=== PATIENT | male | born 1955 | race Caucasian/White ===

== ENCOUNTER → 2016-10-04 | Outpatient (CLI) | payer MEDICARE, MEDICAID ==
[~2016-10-04] MED LIST: ALBUTEROL200 PUFFS/ IH; AMBIEN 10MG TAB10 MG PO; ASPIRIN 325MG325 MG PO; ASPIRIN 81MG TA81 MG PO; ASPIRIN EC325 MG PO; ASPIRIN325 M1 PO; ASTEPRO205.5 MCG/ NS; ATIVAN0.5 MG PO; AUGMENTIN 875 M1 TAB PO; AVAPRO 150MG T150 MG PO; AVAPRO300 M1 PO; AVAPRO300 MG PO; AVAPRO75 MG PO; AZITHROMYCIN250 M1 PO; AZITHROMYCIN250 MG PO; BACTRIM DS 8001 TA1 PO; BENADRYL 50MG C50 MG PO; BISOPROLOL 5MG T5 MG PO; BREO ELLIPTA1 POW IH; BUDESONIDE0.25 MG/2 IH; BUPROPION HCL150 M2 PO; BUPROPION HYDR150 M1 PO; BUSPAR 10MG TAB10 MG PO; CARVEDILOL3.125 M1 PO; CEFTIN500 MG PO; CEFUROXIME AXE500 MG PO; CHILDREN'S AL1 MG/ML PO; CHILDREN'S BE12.5 MG PO; CHLORTHALIDONE25 MG PO; CIPROFLOXACIN500 MG PO; CLARITIN 10MG T10 MG PO; CLEOCIN GENERI150 MG PO; CLINDAMYCIN HC300 MG PO; CLINDAMYCIN300 MG PO; CLONAZEPAM0.5 M1 PO; CLONAZEPAM0.5 MG PO; CLONIDINE 0.2M0.2 MG PO; COREG 3.125M3.125 MG PO; CYCLOBENZAPRINE10 M2 PO; DIGOXIN0.25 MG PO; DIPHENHYDRAMINE25 M1 PO; DOCUSATE SODIU250 M1 PO; DOXYCYCLINE HY100 MG PO; DOXYCYCLINE100 M1 PO; DRAMAMINE50 MG PO; Docusate Sodiu100 MG PO; FERATAB300 MG PO; FLEXERIL10 M1 PO; FLEXERIL10 MG PO; FLONASE 50 MCG16 GM; FLUTICASONE 50M16 GM; GAS RELIEF80 MG PO; GAS-X80 MG PO; HYDROCHLOROTHIA25 M1 PO; IMDUR 30MG. TAB30 MG PO; IMDUR 60MG. TAB60 MG PO; IRBESARTAN300 M1 PO; IRON325 M1 PO; LODINE400 MG PO; LORATADINE 10MG10 M1 PO; MAREPA1200 MG PO; MASON NATURAL1200 MG PO; MEDROL 4MG. DOSE4 MG PO; MELATONIN3 MG PO; METOLAZONE 2.52.5 MG PO; MIRALAX17 GM/PACK PO; MONODOX100 MG PO; NAPROSYN 500MG500 MG PO; NASONEX0.05 MG/AC NS; NATURE'S BLEND M3 MG PO; NEXIUM40 MG PO; NIACIN NO FLUSH1 CAP PO; NIACIN PO; NITROGLYCERIN0.4 MG SL; NITROLINGU0.4 MG/ACT SL; OMEGA 31000 MG PO; OXYCODONE CR10 MG PO; OXYCODONE HYDRO10 M2 PO; OXYCODONE/APAP1 TA5 PO; PANTOPRAZOLE SO40 M1 PO; PANTOPRAZOLE SO40 MG PO; PAROXETINE20 MG PO; PERCOGESIC1 TAB PO; PHENERGAN 25MG.25 M1 PO; PLAVIX75 MG PO; PRAVASTATIN 40M40 MG PO; PRILOSEC40 MG PO; PROAIR HFA0.09 MG/AC IH; PROMETHAZINE HC25 M1 PO; PROTONIX 40MG T40 MG PO; PULMICORT180 MCG/AC IH; Pepcid20 MG PO; RANITIDINE HCL150 MG PO; ROBAXIN-750750 MG PO; RYZOLT100 MG PO; SEROQUEL XR150 MG PO; SIMETHICONE80 MG PO; SOTALOL 80MG TA80 MG PO; SOTALOL HCL120 MG PO; SOTALOL80 MG PO; SYMBICORT1 AE1 IH; TAMSULOSIN HYD0.4 MG PO; TRAMADOL 50MG T50 MG PO; TRAZODONE100 MG PO; TRIAMCINOLON 0.15 GM EX; TRIAMCINOLON 0.80 G2 TP; TRIAMCINOLONE TP; ULTRACET 325 MG1 TAB PO; VALIUM10 MG OR; VICODIN 7.5/501 EACH PO; VITAMIN E 400400 IU PO; VOLTAREN75 MG PO; XANAX 0.5MG TA0.5 MG PO; XARELTO20 MG PO; ZEBETA 5 MG TABL5 MG PO; ZITHROMAX 250M250 MG PO; ZITHROMAX TRI-500 MG PO; ZITHROMAX Z PA250 MG PO; ZITHROMAX Z-PA250 M1 PO; ZYRTEC10 M3 PO; Zofran4 MG PO
[2016-10-04 07:14] LABS: LYMPH # 0.9 K/mm3 (0.7-4.5); LYMPH % 27.6 % (10-50)
[2016-10-04 07:18] LABS: HEMOGLOBIN 11.7 g/dL (14.1-18.0)
[2016-10-05 08:46] LABS: Iron 32 ug/dL (38-169); Iron Saturation 9 % (15-55); UIBC 334 ug/dL (111-343)
== END ==
LOC: LAB 06:58
PROVIDERS: Nurse Practitioner
DX: D50.9 Iron deficiency anemia, unspecified (principal)

== ENCOUNTER 2016-10-20 09:10 | Outpatient (CLI) | payer MEDICARE, MEDICAID ==
[~2016-10-20 09:10] MED LIST changes: +ADVAIR 10028 PUFF/IN IN
[2016-10-20 09:47] VITALS: BP 116/72
[2016-10-20 10:18] VITALS: BP 118/70
[2016-10-20 10:55] VITALS: BP 125/71
[2016-10-20] MEDS ORDERED: ZOLOFT25 MG PO (16:03)
[2016-10-20] MEDS ORDERED: PROAIR HFA0.09 MG/AC IH (16:06)
== END 2016-10-20 11:05 | disposition home or self-care (01) ==
LOC: COP 09:10
DX: D50.9 Iron deficiency anemia, unspecified (principal); D50.0 Iron deficiency anemia secondary to blood loss (chronic); T45.4X5A Adverse effect of iron and its compounds, initial encounter
CPT/HCPCS: J1756

== ENCOUNTER 2016-10-27 09:15 | Outpatient (CLI) | payer MEDICARE, MEDICAID ==
[~2016-10-27] VITALS: Ht 177.8 cm; Wt 92.3 kg
[~2016-10-27 09:15] MED LIST changes: +ZOLOFT25 MG PO
[2016-10-27 09:45] VITALS: BP 130/64
[2016-10-27] MEDS ORDERED: ADVAIR 10028 PUFF/IN IN (09:55)
[2016-10-27] MEDS ORDERED: ADVAIR 250/5028 PUFF IN (09:57)
[2016-10-27 10:15] VITALS: BP 111/62
== END 2016-10-27 10:30 | disposition home or self-care (01) ==
LOC: COP 09:15
DX: D50.9 Iron deficiency anemia, unspecified (principal); D50.0 Iron deficiency anemia secondary to blood loss (chronic); T45.4X5A Adverse effect of iron and its compounds, initial encounter
CPT/HCPCS: J1756

== ENCOUNTER → 2016-12-10 | Outpatient (CLI) | payer MEDICARE, MEDICAID ==
[~2016-12-10] MED LIST changes: +ADVAIR 250/5028 PUFF IN
[2016-12-10 10:45] LABS: URINE BILIRUBIN - DIPSTICK NEGATIVE (NEG); URINE BLOOD NEGATIVE (NEG)
[2016-12-10 11:36] LABS: BUN 13 mg/dL (7-18)
[2016-12-10 12:01] LABS: GFR (ESTIMATED) 68 ML/MIN (>60)
== END ==
LOC: LAB 10:11
PROVIDERS: Internal Medicine Adolescent Medicine
DX: R39.198 Other difficulties with micturition (principal)

== ENCOUNTER → 2017-04-28 | Outpatient (CLI) | payer MEDICARE, MEDICAID ==
[2017-04-28 10:25] LABS: HEMOGLOBIN 14.3 g/dL (14.1-18.0); LYMPH # 1.1 K/mm3 (0.7-4.5); LYMPH % 19.8 % (10-50)
[2017-04-28 11:59] LABS: BUN 17 mg/dL (7-18)
[2017-04-28 12:05] LABS: GFR (ESTIMATED) 68 ML/MIN (>60)
== END ==
LOC: LAB 07:00
PROVIDERS: Internal Medicine Adolescent Medicine
DX: I10 Essential (primary) hypertension (principal); E11.9 Type 2 diabetes mellitus without complications; D50.9 Iron deficiency anemia, unspecified

== ENCOUNTER → 2017-05-24 | Outpatient (CLI) | payer MEDICARE, MEDICAID ==
--- NOTE | 2017-05-26 10:14 | RADIOLOGY REPORT PS360 ---
DIG MAMM-DX LASHONDA W/CAD, US BREAST-LT COMPLETE W/AXILLA COMPARISON: None INDICATION: Palpable abnormality left breast ORDERING PHYSICIAN: Andrew Costello MD PATIENT AGE: 62 years TECHNIQUE: Standard images performed along with left breast ultrasound FINDINGS: No malignant appearing mass or malignant appearing microcalcification is evident. Left breast ultrasound: There is an oval area of isoechogenicity in the 9:00 region measuring 2 x 1.8 cm and 0.8 cm thick corresponding to the palpable abnormality probably related to lipoma. In addition, there is a slightly hyperechoic nodule at 1 cm at 2:00 also probably related to a lipoma. IMPRESSION: Benign findings, palpable left breast abnormality at 9:00 is felt to be related to a lipoma BI-RADS CATEGORY: 2_Benign RECOMMENDED FOLLOWUP: As clinically warranted (A letter has been sent to the patient regarding results of the study.)
== END ==
LOC: RAD 10:47
DX: N63.21 Unspecified lump in the left breast, upper outer quadrant (principal)
CPT/HCPCS: G0204